=== PATIENT | female | born 1945 | race Caucasian/White ===

== ENCOUNTER → 2018-03-29 | Outpatient (CLI) | payer MEDICARE ==
[~2018-03-29] MED LIST: AMLO2.5T2 PO; ASPI81TA45 PO; ATOR10TA PO; METO25TA35 PO; VALS160T3 PO
== END | disposition home or self-care (01) ==
LOC: CFH 10:00
PROVIDERS: ATTEND Nurse Practitioner Family
DX: Z12.31 Encounter for screening mammogram for malignant neoplasm of breast (principal); Z13.820 Encounter for screening for osteoporosis; M85.80 Other specified disorders of bone density and structure, unspecified site
CPT/HCPCS: 77080; 77067

== ENCOUNTER → 2018-04-18 | Outpatient (CLI) | payer MEDICARE | END | disposition home or self-care (01) | LOC: RAD 11:39 | PROVIDERS: ATTEND Nurse Practitioner Family | DX: R91.8 Other nonspecific abnormal finding of lung field (principal); J18.9 Pneumonia, unspecified organism | CPT/HCPCS: 71250 ==

== ENCOUNTER → 2018-08-22 | Outpatient (CLI) | payer MEDICARE | END | disposition home or self-care (01) | LOC: WOUND 13:47 | PROVIDERS: ATTEND Internal Medicine | DX: I87.331 Chronic venous hypertension (idiopathic) with ulcer and inflammation of right lower extremity (principal); L97.811 Non-pressure chronic ulcer of other part of right lower leg limited to breakdown of skin; J45.909 Unspecified asthma, uncomplicated; E78.5 Hyperlipidemia, unspecified; I48.0 Paroxysmal atrial fibrillation; Z90.710 Acquired absence of both cervix and uterus; Z98.49 Cataract extraction status, unspecified eye | CPT/HCPCS: G0463 ==

== ENCOUNTER → 2018-08-25 | Outpatient (CLI) | payer MEDICARE | END | disposition home or self-care (01) | LOC: CFH 11:00 | PROVIDERS: ATTEND Internal Medicine Critical Care Medicine | DX: R91.8 Other nonspecific abnormal finding of lung field (principal); R59.0 Localized enlarged lymph nodes | CPT/HCPCS: 71250 ==

== ENCOUNTER → 2018-09-01 | Outpatient (CLI) | payer MEDICARE | END | disposition home or self-care (01) | LOC: CVU 13:10 | PROVIDERS: ATTEND Internal Medicine | DX: I70.203 Unspecified atherosclerosis of native arteries of extremities, bilateral legs (principal); I87.2 Venous insufficiency (chronic) (peripheral) | CPT/HCPCS: 93922; 93925; 93970 ==

== ENCOUNTER → 2018-09-05 | Outpatient (CLI) | payer MEDICARE | END | disposition home or self-care (01) | LOC: WOUND 12:53 | PROVIDERS: ATTEND Internal Medicine | DX: R21 Rash and other nonspecific skin eruption (principal); L03.115 Cellulitis of right lower limb; I11.9 Hypertensive heart disease without heart failure; I87.2 Venous insufficiency (chronic) (peripheral); E78.5 Hyperlipidemia, unspecified; I48.0 Paroxysmal atrial fibrillation; J45.909 Unspecified asthma, uncomplicated; E66.01 Morbid (severe) obesity due to excess calories; Z68.38 Body mass index [BMI] 38.0-38.9, adult; Z90.710 Acquired absence of both cervix and uterus | CPT/HCPCS: G0463 ==

== ENCOUNTER 2018-12-07 14:01 | Outpatient (CLI) | payer MEDICARE | END 2018-12-07 23:59 | disposition home or self-care (01) | LOC: CVU 14:01 | PROVIDERS: ATTEND Registered Nurse | DX: I08.8 Other rheumatic multiple valve diseases (principal); I48.0 Paroxysmal atrial fibrillation; I10 Essential (primary) hypertension | CPT/HCPCS: 93306 ==

== ENCOUNTER → 2020-03-06 | Outpatient (CLI) | payer MEDICARE ==
[~2020-03-06] MED LIST changes: +ATOR-2 PO; +CARV-39 PO; +CITA40TA5 PO; +PANT40TA6 PO; +VERA120T13 PO; +WARF5TAB2 PO
== END | disposition home or self-care (01) ==
LOC: CFH 10:57
PROVIDERS: ATTEND Nurse Practitioner Family
DX: Z12.31 Encounter for screening mammogram for malignant neoplasm of breast (principal); N95.9 Unspecified menopausal and perimenopausal disorder; M85.80 Other specified disorders of bone density and structure, unspecified site
CPT/HCPCS: 77063; 77067; 77080

== ENCOUNTER → 2020-05-06 | Outpatient (CLI) | payer MEDICARE | END | disposition home or self-care (01) | LOC: CVU 14:26 | PROVIDERS: ATTEND Internal Medicine Cardiovascular Disease | DX: I08.3 Combined rheumatic disorders of mitral, aortic and tricuspid valves (principal); I11.9 Hypertensive heart disease without heart failure; I42.1 Obstructive hypertrophic cardiomyopathy | CPT/HCPCS: 93306 ==

== ENCOUNTER 2020-06-12 06:21 | Day surgery (SDC) | payer MEDICARE ==
[~2020-06-12] VITALS: Ht 170.2 cm; Wt 118.0 kg
[2020-06-12] MEDS ORDERED: BUPIVACAINE LIPOSOME/PF 10ML INFIL ONE (07:00)
[2020-06-12] MEDS ORDERED: SODIUM CHLORIDE 0.9% 1,000 ML IV ONE (07:00)
[2020-06-12] MEDS ORDERED: ERGO500017 PO (07:12)
[2020-06-12] MEDS ORDERED: FURO20TA3 PO (07:12)
[2020-06-12] MEDS ORDERED: CLIN150C15 PO (07:12)
[2020-06-12] MEDS ORDERED: PROPOFOL 10 MG/ML, 20ML ONE (14:49)
== END 2020-06-12 09:52 | disposition home or self-care (01) ==
LOC: CACL 06:21
PROVIDERS: ATTEND Internal Medicine Cardiovascular Disease
DX: I34.0 Nonrheumatic mitral (valve) insufficiency (principal); I10 Essential (primary) hypertension; E66.9 Obesity, unspecified; E78.2 Mixed hyperlipidemia; I48.0 Paroxysmal atrial fibrillation; I42.1 Obstructive hypertrophic cardiomyopathy; Z88.2 Allergy status to sulfonamides; Z88.1 Allergy status to other antibiotic agents; Z79.01 Long term (current) use of anticoagulants; Z79.899 Other long term (current) drug therapy; Z20.822 Contact with and (suspected) exposure to COVID-19; Z98.890 Other specified postprocedural states; Z68.41 Body mass index [BMI] 40.0-44.9, adult
CPT/HCPCS: 87635; 93312; 93321; 93325; J2704

== ENCOUNTER → 2020-10-11 | Outpatient (CLI) | payer MEDICARE ==
[~2020-10-11] MED LIST changes: +CLIN150C15 PO; +ERGO500017 PO; +FURO20TA3 PO; +OMNIPAQUE 350 MG/ML, 100ML BOTTLE ONE
== END | disposition home or self-care (01) ==
LOC: CFH 14:19
PROVIDERS: ATTEND Internal Medicine
DX: I77.810 Thoracic aortic ectasia (principal); M47.816 Spondylosis without myelopathy or radiculopathy, lumbar region
CPT/HCPCS: 71275; 74175; Q9967

== ENCOUNTER → 2020-10-17 | Outpatient (CLI) | payer MEDICARE ==
[~2020-10-17] MED LIST changes: -OMNIPAQUE 350 MG/ML, 100ML BOTTLE ONE
== END | disposition home or self-care (01) ==
LOC: CFH 15:07
PROVIDERS: ATTEND Surgery
DX: E04.2 Nontoxic multinodular goiter (principal); E21.0 Primary hyperparathyroidism
CPT/HCPCS: 76536

== ENCOUNTER → 2020-11-19 | Outpatient (CLI) | payer MEDICARE | END | disposition home or self-care (01) | LOC: RAD 12:13 | PROVIDERS: ATTEND Surgery | DX: E21.0 Primary hyperparathyroidism (principal) | CPT/HCPCS: 78070; A9500 ==

== ENCOUNTER 2020-11-30 18:25 | Inpatient (IN) | payer MEDICARE ==
[~2020-11-30] VITALS: Ht 175.3 cm; Wt 105.7 kg
[2020-11-30 20:04] LABS: BASOPHILS % (AUTO) 1 % (0-1); EOSINOPHILS % (AUTO) 2 % (1-7); LYMPHOCYTES % (AUTO) 27 % (22-44); MEAN CORPUSCULAR HEMOGLOBIN 30.8 pg (27.0-34.8); MEAN CORPUSCULAR HGB CONC 34.2 g/dL (32.4-35.8); MEAN PLATELET VOLUME 8.4 fL (7.4-10.4); MONOCYTES % (AUTO) 10 % (2-9); NEUTROPHILS % (AUTO) 60 % (42-75); PLATELET COUNT 253 x10^3/uL (130-400)
[2020-11-30 20:16] LABS: ALBUMIN 3.3 g/dL (3.4-5.0); CALCIUM 10.4 mg/dL (8.5-10.1)
[2020-11-30 20:20] LABS: ALANINE AMINOTRANSFERASE 27 U/L (12-78); ALKALINE PHOSPHATASE 115 U/L (45-117); BILIRUBIN,TOTAL 0.6 mg/dL (0.2-1.0); CREATININE 0.82 mg/dL (0.55-1.02); INTERNATIONAL NORMALIZED RATIO 2.59 (0.93-1.1); PROTHROMBIN TIME 26.5 Seconds (9.6-11.5); TOTAL PROTEIN 6.4 g/dL (6.4-8.2)
[2020-11-30 20:27] LABS: ANION GAP 2 mmol/L (5-15); CHLORIDE 111 mmol/L (98-107)
--- NOTE | 2020-11-30 20:52 | NUR ---
ALL RESULTS ARE BACK AT THIS TIME. CHART UP FOR RECHECK.
--- NOTE | 2020-11-30 21:57 | NUR ---
HOSPITALIST AT BEDSIDE.
[2020-11-30] MEDS ORDERED: ACETAMINOPHEN 650 MG/20.3 ML UDC PO PRN (22:00)
--- NOTE | 2020-11-30 22:21 | NUR ---
REPORT GIVEN TO GIOVANNA MCDOWELL. PT RTG TO ROOM [id number]
[2020-11-30 22:31] VITALS: BP 156/92
[2020-12-01] VITALS (12 sets, daily range): BP systolic 127–175; BP diastolic 72–93
[2020-12-01] MEDS: ASPIRIN 81 MG TABLET EC PO SCH (06:37)
[2020-12-01 06:51] LABS: CHOL/HDL RATIO 2.8; LDL/HDL RATIO 0.8 (0.5-3.0)
[2020-12-01] MEDS ORDERED: CARVEDILOL 12.5 MG TABLET PO SCH (09:00)
[2020-12-01] MEDS: PANTOPRAZOLE 40MG TABLET PO SCH (09:25)
[2020-12-01] MEDS ORDERED: ACETAMINOPHEN 325 MG TABLET ONE (18:29)
[2020-12-01] MEDS: ACETAMINOPHEN 325 MG TABLET PO PRN (18:32)
[2020-12-01] MEDS ORDERED: ATORVASTATIN 80 MG TABLET PO SCH (21:00)
[2020-12-01] MEDS: APIXABAN 5 MG TABLET PO SCH (21:16)
[2020-12-01] MEDS: CARVEDILOL 12.5 MG TABLET PO SCH (21:17)
[2020-12-02 00:30] VITALS: BP 128/72
[2020-12-02 01:32] VITALS: BP 138/67
[2020-12-02] MEDS: ACETAMINOPHEN 325 MG TABLET PO PRN (04:05)
[2020-12-02 04:46] VITALS: BP 148/68
[2020-12-02] MEDS: ASPIRIN 81 MG TABLET EC PO SCH (05:52)
[2020-12-02 08:33] VITALS: BP 167/76
[2020-12-02 08:47] VITALS: BP 167/76
[2020-12-02] MEDS ORDERED: BUTALB/APAP/CAFFEINE 50MG/325MG/40MG PO ONE (09:00)
[2020-12-02] MEDS: APIXABAN 5 MG TABLET PO SCH (09:05)
[2020-12-02] MEDS: PANTOPRAZOLE 40MG TABLET PO SCH (09:05)
[2020-12-02] MEDS: CARVEDILOL 12.5 MG TABLET PO SCH (09:05)
[2020-12-02] MEDS ORDERED: VERAPAMIL 120MG TABLET PO SCH (10:00)
[2020-12-02] MEDS ORDERED: APIX5TAB PO (13:26)
[2020-12-02 14:03] VITALS: BP 123/73
== END 2020-12-02 15:20 | disposition home health service (06) | DRG 65 ==
LOC: ED 19:00 → EDIP 21:32 → SUATTDRO 21:33 → 4WST 22:27
PROVIDERS: ADMIT Internal Medicine; ATTEND Hospitalist
DX: I63.9 Cerebral infarction, unspecified (principal); I48.20 Chronic atrial fibrillation, unspecified; I42.9 Cardiomyopathy, unspecified; Z88.2 Allergy status to sulfonamides; Z88.8 Allergy status to other drugs, medicaments and biological substances; D35.1 Benign neoplasm of parathyroid gland; E78.00 Pure hypercholesterolemia, unspecified; E83.52 Hypercalcemia; I10 Essential (primary) hypertension; R73.03 Prediabetes; Z79.01 Long term (current) use of anticoagulants; R29.702 NIHSS score 2
CPT/HCPCS: 36415; 70450; 70551; 80053; 80061; 83036; 84443; 85025; 85610; 85730; 93005; 93306; 93880; 94660; 99285; G0378; 92523-GN